=== PATIENT | male | born 1960 | race Two or more races ===

== ENCOUNTER 2018-04-09 11:58 | Emergency (ER) | payer OTHER ==
[~2018-04-09] VITALS: Ht 175.3 cm; Wt 93.0 kg
[~2018-04-09 11:58] MED LIST: AUGMENTIN 875-1 EAC1 ORAL; IBUPROFEN600 MG ORAL
[2018-04-09] MEDS ORDERED: ASPIR 8181 MG ORAL (12:13)
--- NOTE | 2018-04-09 12:18 | Emergency Room Report ---
History of Present Illness General Chief Complaint: Chest Pain Source: Patient Present Illness HPI Patient presents with complaints of pain to the left arm Initially was noted regarding numbness however the patient reports tingling sensation also feels tingling diffusely throughout the head patient reported a several days ago he had pain to the mid chest area as well This is been ongoing for the past several weeks however Patient also reports that he has seen maroon type colored stool over the past 2 years Denies any vomiting denies any diarrhea and eyes any abdominal pain at this time Denies any focal weakness denies any change in speech Allergies: Coded Allergies: No Known Allergies (Unverified , 02/07/15) Patient History Past Medical History: see triage record Pertinent Family History: none Reviewed Nursing Documentation: PMH: Agreed; PSxH: Agreed Nursing Documentation-PMH Past Medical History: No History, Except For Hx Cardiac Problems: Yes - [place] Hx Hypertension: No Hx Pacemaker: No Hx Asthma: Yes Hx COPD: No Hx Diabetes: No Hx Cancer: No Hx Gastrointestinal Problems: No Hx Dialysis: No History Of Psychiatric Problem: No Hx Neurological Problems: No Hx Cerebrovascular Accident: No Hx Seizures: No Review of Systems All Other Systems: negative except mentioned in HPI Physical Exam Vital Signs Date Time Temp Pulse Resp B/P (MAP) Pulse Ox O2 Delivery O2 Flow Rate FiO2 04/09/18 12:05 98.1 89 16 132/96 95 Room Air 98.1 Sp02 EP Interpretation: reviewed, normal General Appearance: well appearing, no apparent distress Head: normocephalic, atraumatic Eyes: bilateral eye PERRL, bilateral eye EOMI ENT: hearing grossly normal, normal pharynx, TMs + canals normal, uvula midline Neck: full range of motion, supple, no meningismus, no bony tend Respiratory: lungs clear, normal breath sounds, no rhonchi, no respiratory distress, no retraction, no accessory muscle use Cardiovascular #1: normal peripheral pulses, regular rate, rhythm, no edema, no gallop, no JVD, no murmur Gastrointestinal: normal bowel sounds, non tender, soft, no mass, no organomegaly, non-distended, no guarding, no hernia, no pulsatile mass, no rebound Genitourinary: no CVA tenderness Musculoskeletal: normal inspection Neurologic: oriented x3, responsive, supervisor bottle machines III-XII nml as tested, motor strength/ tone normal, sensory intact Psychiatric: mood/affect normal Skin: normal color, no rash, warm/dry, palpation normal Lymphatic: normal inspection, no adenopathy Medical Decision Making Diagnostic Impression: Primary Impression: Neuropathy ER Course Patient is a fairly complex patient with multiple differential to consideration including but not limited to cardiac cardiopulmonary and vascular emergencies Patient moving all extremities equally sensation is intact on examination clinically I did not feel emergency imaging of the brain was warranted Patient's blood work is appropriate EKG was also appropriate patient resting comfortably with appropriate hemodynamic stability and is otherwise stable for close follow-up Labs Test 04/09/18 12:20 04/09/18 12:52 White Blood Count 7.2 K/UL (4.8-10.8) Red Blood Count 4.97 M/UL (4.70-6.10) Hemoglobin 14.6 G/DL (14.2-18.0) Hematocrit 43.5 % (42.0-52.0) Mean Corpuscular Volume 88 FL (80-99) Mean Corpuscular Hemoglobin 29.4 PG (27.0-31.0) Mean Corpuscular Hemoglobin Concent 33.5 G/DL (32.0-36.0) Red Cell Distribution Width 12.2 % (11.6-14.8) Platelet Count 203 K/UL (150-450) Mean Platelet Volume 8.8 FL (6.5-10.1) Neutrophils (%) (Auto) 65.2 % (45.0-75.0) Lymphocytes (%) (Auto) 25.3 % (20.0-45.0) Monocytes (%) (Auto) 6.0 % (1.0-10.0) Eosinophils (%) (Auto) 2.1 % (0.0-3.0) Basophils (%) (Auto) 1.4 % (0.0-2.0) Sodium Level 140 MMOL/L (136-145) Potassium Level 3.5 MMOL/L (3.5-5.1) Chloride Level 105 MMOL/L (98-107) Carbon Dioxide Level 27 MMOL/L (21-32) Anion Gap 8 mmol/L (5-15) Blood Urea Nitrogen 11 mg/dL (7-18) Creatinine 1.0 MG/DL (0.55-1.30) Estimat Glomerular Filtration Rate > 60 mL/min (>60) Glucose Level 120 MG/DL (74-106) Calcium Level 8.7 MG/DL (8.5-10.1) Total Bilirubin 0.4 MG/DL (0.2-1.0) Aspartate Amino Transf (AST/SGOT) 17 U/L (15-37) Alanine Aminotransferase (ALT/SGPT) 33 U/L (12-78) Alkaline Phosphatase 99 U/L (46-116) Total Creatine Kinase 135 U/L (26-308) Creatine Kinase MB 0.7 NG/ML (0.0-3.6) Creatine Kinase MB Relative Index 0.5 Troponin I 0.000 ng/mL (0.000-0.056) Total Protein 7.5 G/DL (6.4-8.2) Albumin 3.5 G/DL (3.4-5.0) Globulin 4.0 g/dL Albumin/Globulin Ratio 0.9 (1.0-2.7) Urine Opiates Screen Negative (NEGATIVE) Urine Barbiturates Screen Negative (NEGATIVE) Phencyclidine (PCP) Screen Negative (NEGATIVE) Urine Amphetamines Screen Negative (NEGATIVE) Urine Benzodiazepines Screen Negative (NEGATIVE) Urine Cocaine Screen Negative (NEGATIVE) Urine Marijuana (THC) Screen Positive (NEGATIVE) Rhythm Strip Diag. Results EP Interpretation: yes Rate: 78 Rhythm: NSR, no PVC's, no ectopy Chest X-Ray Diagnostic Results Chest X-Ray Diagnostic Results : Chest X-Ray Ordered: Yes # of Views/Limited/Complete: 1 View Indication: Chest Pain EP Interpretation: Yes Interpretation: no consolidation, no effusion, no pneumothorax Impression: No acute disease Electronically Signed by: Monika Cody DO Last Vital Signs Date Time Temp Pulse Resp B/P (MAP) Pulse Ox O2 Delivery O2 Flow Rate FiO2 04/09/18 12:05 98.1 89 16 132/96 95 Room Air 98.1 Status: improved Disposition: HOME, SELF-CARE Condition: Improved Additional Instructions: Patient is provided with the discharge instructions notified to follow up with primary doctor in the next 2-3 days otherwise return to the er with any worsening symptoms. Please note that this report is being documented using [employer] technology. This can lead to erroneous entry secondary to incorrect interpretation by the dictating instrument. Monika Cody DO Apr 09, 2018 12:18
[2018-04-09 12:27] VITALS: BP 128/81
[2018-04-09 12:42] LABS: BASOPHILS % (AUTO) 1.4 % (0.0-2.0); EOSINOPHILS % (AUTO) 2.1 % (0.0-3.0); HEMATOCRIT 43.5 % (42.0-52.0); HEMOGLOBIN 14.6 G/DL (14.2-18.0); LYMPHOCYTES % (AUTO) 25.3 % (20.0-45.0); MEAN CORPUSCULAR VOLUME 88 FL (80-99); NEUTROPHILS % (AUTO) 65.2 % (45.0-75.0); PLATELET COUNT 203 K/UL (150-450); RED BLOOD COUNT 4.97 M/UL (4.70-6.10); RED CELL DISTRIBUTION WIDTH 12.2 % (11.6-14.8); WHITE BLOOD COUNT 7.2 K/UL (4.8-10.8)
[2018-04-09 12:45] LABS: ANION GAP 8 mmol/L (5-15); BLOOD UREA NITROGEN 11 mg/dL (7-18); CALCIUM 8.7 MG/DL (8.5-10.1); CARBON DIOXIDE 27 MMOL/L (21-32); CHLORIDE 105 MMOL/L (98-107); POTASSIUM 3.5 MMOL/L (3.5-5.1); SODIUM 140 MMOL/L (136-145)
[2018-04-09 12:58] LABS: ALANINE AMINOTRANSFERASE 33 U/L (12-78); ALBUMIN 3.5 G/DL (3.4-5.0); ALBUMIN/GLOBULIN RATIO 0.9 (1.0-2.7); ALKALINE PHOSPHATASE 99 U/L (46-116); ASPARTATE AMINO TRANSFERASE 17 U/L (15-37); BILIRUBIN,TOTAL 0.4 MG/DL (0.2-1.0); CKMB 0.7 NG/ML (0.0-3.6); CREATINE KINASE 135 U/L (26-308)
[2018-04-09 13:56] VITALS: BP 133/73
--- NOTE | 2018-04-09 14:02 | Diagnostic Imaging Report ---
Indication: Chest pain Technique: One view of the chest Comparison: none Findings: Lungs and pleural spaces are clear. The heart size is upper limits of normal. Impression: No acute process
== END 2018-04-09 13:56 | disposition home or self-care (01) ==
LOC: EMR 12:15
DX: G62.9 Polyneuropathy, unspecified (principal); J45.909 Unspecified asthma, uncomplicated; I25.2 Old myocardial infarction
CPT/HCPCS: 36415; 71045; 80053; 80307; 82550; 82553; 84484; 85025; 93005; 99284

== ENCOUNTER 2018-05-01 19:50 | Emergency (ER) | payer OTHER ==
[~2018-05-01] VITALS: Ht 165.1 cm; Wt 88.9 kg
[~2018-05-01 19:50] MED LIST changes: +ASPIR 8181 MG ORAL
[2018-05-01 20:03] VITALS: BP 125/82
--- NOTE | 2018-05-01 20:24 | Emergency Room Report ---
History of Present Illness General Chief Complaint: Pain Source: Patient, Medical Record Present Illness HPI Patient is a 58-year-old male who presented after increased right shoulder pain as well as the left knee pain. Patient reports having been wrestling with his son. He states he fell onto some obvious on the floor and subsequently had increased pain to his left knee as well as his right shoulder. This had gradually worsened. Patient prior episodes of the right shoulder pain type patient denies any other locations of injury. The patient states this was not assault. He denies any numbness or tingling.Patient denies any fever. Allergies: Coded Allergies: No Known Allergies (Unverified , 02/07/15) Patient History Past Medical History: see triage record Reviewed Nursing Documentation: PMH: Agreed; PSxH: Agreed Nursing Documentation-PMH Hx Cardiac Problems: Yes - [place] Hx Hypertension: No Hx Pacemaker: No Hx Asthma: Yes Hx COPD: No Hx Diabetes: No Hx Cancer: No Hx Gastrointestinal Problems: No Hx Dialysis: No Hx Neurological Problems: No Hx Cerebrovascular Accident: No Hx Seizures: No Review of Systems All Other Systems: negative except mentioned in HPI Physical Exam Vital Signs Date Time Temp Pulse Resp B/P (MAP) Pulse Ox O2 Delivery O2 Flow Rate FiO2 05/01/18 19:58 98.2 95 18 125/82 93 Room Air Sp02 EP Interpretation: reviewed, normal General Appearance: normal inspection, well appearing, no apparent distress, alert, GCS 15 Head: atraumatic ENT: normal ENT inspection, hearing grossly normal, normal voice Neck: normal inspection, full range of motion, supple, no bony tend Respiratory: normal inspection, lungs clear, normal breath sounds, no respiratory distress, no retraction, no wheezing Cardiovascular #1: regular rate, rhythm, no edema Gastrointestinal: normal inspection, normal bowel sounds, non tender, soft, no guarding, no hernia Genitourinary: no CVA tenderness Musculoskeletal: normal inspection, back normal, decreased range of motion - right shoulder, left knee laxity anterior drawer, small effusion, , tender - right anterior shoulder tenderness Neurologic: normal inspection, alert, oriented x3, responsive, database coordinator III-XII nml as tested, speech normal Psychiatric: normal inspection, judgement/insight normal, mood/affect normal Skin: normal inspection, normal color, no rash Medical Decision Making Diagnostic Impression: Primary Impression: Acute meniscal injury of left knee Additional Impression: Shoulder pain, right ER Course Patient presented for shoulder pain and knee pain.. Differential diagnosis included was not limited to rotator cuff tear, dislocation, fracture, labrum tear, biceps rupture, Fracture , tendinitis among others.Because of complexity of patient's case imaging studies were ordered.X-ray imaging of the right shoulder 3 views interpreted by me showed degenerative changes without evident fracture. X-ray imaging of the left knee 3 views indication pain showed a degenerative changes without evident fracture. The patient's exam is consistent with a anterior cruciate ligament sprain as well as a medial collateral sprain. The patient was placed in a knee immobilizer and given a sling. The patient is advised to follow up with primary care doctor in 1-2 days. Patient is advised to return if any worsening condition or if any changes in status that are concerning. This report is dictated with [employer] tool profiling machine set up operator software which may occasionally lead to discrepancies related to use of this software. Last Vital Signs Date Time Temp Pulse Resp B/P (MAP) Pulse Ox O2 Delivery O2 Flow Rate FiO2 05/01/18 20:03 98.2 88 18 125/82 93 Room Air Status: improved Disposition: HOME, SELF-CARE Condition: Stable Scripts Hydrocodone Bit/Acetaminophen 5-325* (NORCO 5-325*) 1 Each Tablet 1 TAB ORAL Q6H PRN for For Pain, #10 TAB 0 Refills Prov: Archie Espitia MD 05/01/18 Ibuprofen* (MOTRIN*) 600 Mg Tablet 600 MG ORAL Q8H PRN for For Pain, #30 TAB 0 Refills Prov: Archie Espitia MD 05/01/18 Archie Espitia MD May 01, 2018 20:24
[2018-05-01] MEDS ORDERED: Ketorolac 60mg Inj IM ONE (20:30)
[2018-05-01] MEDS ORDERED: NORCO 5-325 TA1 EACH ORAL (20:46)
[2018-05-01] MEDS ORDERED: IBUPROFEN600 MG ORAL (20:46)
[2018-05-01 21:00] VITALS: BP 118/75
--- NOTE | 2018-05-01 21:00 | Diagnostic Imaging Report ---
EXAM: XR Right Shoulder Complete, 2 or More Views CLINICAL HISTORY: PAIN TECHNIQUE: Two or more views of the right shoulder. COMPARISON: No relevant prior studies available. FINDINGS: Bones/joints: Unremarkable. No acute fracture. No dislocation. Soft tissues: Unremarkable. IMPRESSION: Normal right shoulder x-rays.
--- NOTE | 2018-05-01 21:01 | Diagnostic Imaging Report ---
EXAM: XR Left Knee, 3 views CLINICAL HISTORY: PAIN TECHNIQUE: Three views of the left knee. COMPARISON: No relevant prior studies available. FINDINGS: Bones/joints: Minimal degenerative changes. No acute fracture or traumatic malalignment. Small joint effusion. Soft tissues: Unremarkable. IMPRESSION: No acute findings.
== END 2018-05-01 21:04 | disposition home or self-care (01) ==
LOC: EMR 20:20
DX: S83.8X2A Sprain of other specified parts of left knee, initial encounter (principal); W19.XXXA Unspecified fall, initial encounter; Y93.72 Activity, wrestling; Y92.9 Unspecified place or not applicable; M25.511 Pain in right shoulder; I25.2 Old myocardial infarction
CPT/HCPCS: 96372; 99284

== ENCOUNTER 2018-07-18 12:10 | Emergency (ER) | payer OTHER ==
[~2018-07-18] VITALS: Ht 162.6 cm; Wt 90.3 kg
[~2018-07-18 12:10] MED LIST changes: +NORCO 5-325 TA1 EACH ORAL
[2018-07-18 12:30] VITALS: BP 149/92
--- NOTE | 2018-07-18 12:30 | NUR ---
ED Nurse Note: pt walked in to ED for wound check up on left hand. per pt, had puncture wound by nail 3 days ago. no discharge, local fever or redness noted. AAO x4. respirations even and non-labored noted. skin warm to touch. will wait for the further order.
[2018-07-18] MEDS ORDERED: Bacitracin Oint UD TOPIC ONE (12:45)
--- NOTE | 2018-07-18 13:00 | Emergency Room Report ---
History of Present Illness General Chief Complaint: General Complaint Source: Patient Present Illness HPI Patient has a puncture wound to his left hand. He is worried that there may have been blistering. His daughter has herpes and he is worried that she may have contacted that. There is some other bumps on his skin that concerned him. He has myalgias across his shoulders and upper arms. He denies fevers or chills. He is uncertain when his last tetanus vaccination was. The myalgias are not exertion related. No fevers, chills, chest pain, palpitations, nausea, vomiting, diarrhea, dysuria , abdominal pain, shortness of breath, depression, visual changes, headache. Allergies: Coded Allergies: No Known Allergies (Unverified , 02/07/15) Patient History Past Medical History: see triage record Social History: Denies: smoking Social History Narrative With daughter Reviewed Nursing Documentation: PMH: Agreed; PSxH: Agreed Nursing Documentation-PMH Past Medical History: No History, Except For Hx Cardiac Problems: Yes - [place] Hx Hypertension: No Hx Pacemaker: No Hx Asthma: Yes Hx COPD: No Hx Diabetes: No Hx Cancer: No Hx Gastrointestinal Problems: No Hx Dialysis: No Hx Neurological Problems: No Hx Cerebrovascular Accident: No Hx Seizures: No Review of Systems All Other Systems: negative except mentioned in HPI Physical Exam Vital Signs Date Time Temp Pulse Resp B/P (MAP) Pulse Ox O2 Delivery O2 Flow Rate FiO2 07/18/18 12:23 98.1 75 18 149/92 98 Room Air Sp02 EP Interpretation: reviewed, normal General Appearance: well appearing, no apparent distress Head: normocephalic, atraumatic Eyes: left eye other - Medial rectus weakness; bilateral eye PERRL ENT: hearing grossly normal, normal pharynx, normal voice, moist mucus membranes Neck: full range of motion, supple Respiratory: no respiratory distress, speaking full sentences Cardiovascular #2: 2+ radial (L) Gastrointestinal: normal inspection Musculoskeletal: other - Alleged tenderness across his shoulders with full range of motion Neurologic: alert, normal gait, grossly normal Psychiatric: mood/affect normal, anxious Skin: other - Puncture wound left thenar eminence. Other small excoriated lesions without blistering or erythema. They are extremely sparse and rare, one on his right abdomen Medical Decision Making Diagnostic Impression: Primary Impression: Myalgia Additional Impression: Puncture wound ER Course Patient presents with a puncture wound. Also there are other skin lesions which do not appear like herpes. He also complains of myalgias. Vital signs are stable. Tetanus is indicated. Patient reassured about exposure to herpes. Patient stable for outpatient observation and treatment. Last Vital Signs Date Time Temp Pulse Resp B/P (MAP) Pulse Ox O2 Delivery O2 Flow Rate FiO2 07/18/18 13:33 98.1 75 18 149/92 98 Room Air Status: improved Disposition: HOME, SELF-CARE Condition: Improved Scripts Bacitracin (Bacitracin) 28.4 Gm Oint...g. 1 APPLIC TOPIC BID, #20 GM Prov: Frankie Florentino MD 07/18/18 Ibuprofen* (MOTRIN*) 600 Mg Tablet 600 MG ORAL Q6H PRN for For Pain, #20 TAB Prov: Frankie Florentino MD 07/18/18 Frankie Florentino MD Jul 18, 2018 13:00
[2018-07-18] MEDS ORDERED: BACITRACIN15 GM TOPIC (13:02)
[2018-07-18] MEDS ORDERED: IBUPROFEN600 MG ORAL (13:02)
[2018-07-18] MEDS ORDERED: Tetanus/Diptheria/Pertussis Vaccine 0.5ml Syr IM ONE (13:15)
[2018-07-18 13:33] VITALS: BP 149/92
--- NOTE | 2018-07-18 13:33 | NUR ---
ED Nurse Note: Patient is being discharged from medical care with prescriptions. Awake, alert and oriented x3. ID band were removed. Patient ambulated out with all personal belongings with steady gait.
[2018-07-18] MEDS ORDERED: NKM (13:43)
== END 2018-07-18 13:33 | disposition home or self-care (01) ==
LOC: EMR 13:00
DX: S61.432A Puncture wound without foreign body of left hand, initial encounter (principal); X58.XXXA Exposure to other specified factors, initial encounter; Y92.89 Other specified places as the place of occurrence of the external cause; Z23 Encounter for immunization; I25.2 Old myocardial infarction; J45.909 Unspecified asthma, uncomplicated
CPT/HCPCS: 82962; 90471; 90715; 99282

== ENCOUNTER 2018-09-03 17:03 | Emergency (ER) | payer OTHER ==
[~2018-09-03] VITALS: Ht 162.6 cm; Wt 92.5 kg
[~2018-09-03 17:03] MED LIST changes: +BACITRACIN15 GM TOPIC; +NKM
--- NOTE | 2018-09-03 17:14 | NUR ---
ED Nurse Note: Patient walked in from home c/o left sided chest pain, patient describes it as "sharp" patient reports the pain is radiating to Left upper extremity and numbness on the left side face. patient reports that this pain has been there for 4 days. ambulatory, a/o x4, Patient denies N/V or diaphoresis.
[2018-09-03] MEDS ORDERED: ATORVASTATIN CA40 MG ORAL (17:16)
[2018-09-03] MEDS ORDERED: METOPROLOL SUCC50 MG ORAL (17:16)
--- NOTE | 2018-09-03 17:25 | Emergency Room Report ---
History of Present Illness General Chief Complaint: Chest Pain Source: Patient Present Illness HPI Patient presents emergency department today complaint left-sided chest pain radiating into the jaw and arm. Intermittent feels like needles. Occurring over last 4 days. Questionable if it's actually exertional. Denies any social leg pain does have associative shortness of breath. Denies any orthopnea nausea vomiting diarrhea or chills. Patient does not remember having any stress test this before. No other complaints are noted. Symptoms noted to be moderate to severe. Of note patient was told that he had a weak heart when he saw his oracle financial application developer he was unable to complete a stress test.No other modifying factors. No other associated signs and symptoms. No other complaints were noted. Allergies: Coded Allergies: No Known Allergies (Unverified , 02/07/15) Patient History Past Medical History: DC, CAD, asthma Past Surgical History: none Pertinent Family History: none Social History: Denies: smoking, alcohol use, drug use Reviewed Nursing Documentation: PMH: Agreed; PSxH: Agreed Nursing Documentation-PMH Past Medical History: No History, Except For Hx Cardiac Problems: Yes - [place] Hx Hypertension: No Hx Pacemaker: No Hx Asthma: Yes Hx COPD: No Hx Diabetes: No Hx Cancer: No Hx Gastrointestinal Problems: No Hx Dialysis: No Hx Neurological Problems: No Hx Cerebrovascular Accident: No Hx Seizures: No Review of Systems All Other Systems: negative except mentioned in HPI Physical Exam Vital Signs Date Time Temp Pulse Resp B/P (MAP) Pulse Ox O2 Delivery O2 Flow Rate FiO2 09/03/18 17:10 98.2 78 16 154/90 96 Room Air Sp02 EP Interpretation: reviewed, normal General Appearance: normal inspection, well appearing, no apparent distress, alert Head: atraumatic Eyes: bilateral eye normal inspection ENT: normal ENT inspection, hearing grossly normal, normal voice Neck: normal inspection, full range of motion, supple, no bony tend Respiratory: normal inspection, lungs clear, normal breath sounds, no respiratory distress, no retraction, no wheezing Cardiovascular #1: regular rate, rhythm, no edema Gastrointestinal: normal inspection, normal bowel sounds, non tender, soft, no guarding, no hernia Genitourinary: no CVA tenderness Musculoskeletal: normal inspection, back normal, normal range of motion Neurologic: normal inspection, alert, responsive, speech normal Psychiatric: normal inspection, judgement/insight normal, mood/affect normal Skin: normal inspection, normal color, no rash Medical Decision Making Diagnostic Impression: Primary Impression: ACS (acute coronary syndrome) ER Course Patient presented to the emergency department today complaining of chest pain. Differential diagnoses include acute coronary syndrome, pulmonary embolism, pneumothorax, chest wall pain, pleurisy, pericarditis, acute anxiety reaction just to name a few. Given the severity of the patient's presentation I felt this is a highly complex patient. This patient required extensive workup. CBC , chemistry, EKG, chest x-ray, cardiac enzymes, liver profile were all obtained. 12-lead EKG performed for nontraumatic chest pain. RS documentation: EKG was performed. Please refer to below for interpretation. Patient had CBC and chemistry obtained. Both of which were normal. Patient's cardiac enzymes also normal. Patient had normal chest x-ray. Patient's EKG and rhythm strip are also normal. Given patient's presentation risk factors however I felt the patient require admission. Case was discussed with Dr. Newton Serrano. Patient will be transferred telemetry to [facility] once a bed is available. Labs Test 09/03/18 17:33 White Blood Count 7.8 K/UL (4.8-10.8) Red Blood Count 4.99 M/UL (4.70-6.10) Hemoglobin 14.8 G/DL (14.2-18.0) Hematocrit 45.3 % (42.0-52.0) Mean Corpuscular Volume 91 FL (80-99) Mean Corpuscular Hemoglobin 29.6 PG (27.0-31.0) Mean Corpuscular Hemoglobin Concent 32.6 G/DL (32.0-36.0) Red Cell Distribution Width 12.7 % (11.6-14.8) Platelet Count 217 K/UL (150-450) Mean Platelet Volume 7.7 FL (6.5-10.1) Neutrophils (%) (Auto) 60.2 % (45.0-75.0) Lymphocytes (%) (Auto) 30.1 % (20.0-45.0) Monocytes (%) (Auto) 6.2 % (1.0-10.0) Eosinophils (%) (Auto) 1.5 % (0.0-3.0) Basophils (%) (Auto) 2.0 % (0.0-2.0) Sodium Level 139 MMOL/L (136-145) Potassium Level 3.1 MMOL/L (3.5-5.1) Chloride Level 104 MMOL/L (98-107) Carbon Dioxide Level 27 MMOL/L (21-32) Anion Gap 8 mmol/L (5-15) Blood Urea Nitrogen 11 mg/dL (7-18) Creatinine 1.1 MG/DL (0.55-1.30) Estimat Glomerular Filtration Rate > 60 mL/min (>60) Glucose Level 84 MG/DL (74-106) Calcium Level 9.2 MG/DL (8.5-10.1) Total Bilirubin 0.6 MG/DL (0.2-1.0) Aspartate Amino Transf (AST/SGOT) 24 U/L (15-37) Alanine Aminotransferase (ALT/SGPT) 51 U/L (12-78) Alkaline Phosphatase 113 U/L (46-116) Total Creatine Kinase 221 U/L (26-308) Creatine Kinase MB 2.0 NG/ML (0.0-3.6) Creatine Kinase MB Relative Index 0.9 Troponin I 0.000 ng/mL (0.000-0.056) Pro-B-Type Natriuretic Peptide 10 pg/mL (0-125) Total Protein 8.3 G/DL (6.4-8.2) Albumin 4.1 G/DL (3.4-5.0) Globulin 4.2 g/dL Albumin/Globulin Ratio 1.0 (1.0-2.7) EKG Diagnostic Results Rate: normal Rhythm: NSR ST Segments: no acute changes Other Impression left axis deviation Rhythm Strip Diag. Results EP Interpretation: yes Rate: 80s Rhythm: NSR, no PVC's, no ectopy Chest X-Ray Diagnostic Results Chest X-Ray Diagnostic Results : Chest X-Ray Ordered: Yes # of Views/Limited/Complete: 1 View Indication: Chest Pain EP Interpretation: Yes Interpretation: no consolidation, no effusion, no pneumothorax, no acute cardiopulmonary disease Impression: No acute disease Electronically Signed by: Electronically signed by Alfonzo Agrawal MD Last Vital Signs Date Time Temp Pulse Resp B/P (MAP) Pulse Ox O2 Delivery O2 Flow Rate FiO2 09/03/18 17:10 98.2 78 16 154/90 96 Room Air Status: improved Disposition: XFER SHT-TRM HOSP Condition: Serious Alfonzo Agrawal MD Sep 03, 2018 17:25
[2018-09-03] MEDS ORDERED: Aspirin Baby 81mg ORAL ONE (17:30)
[2018-09-03 17:47] VITALS: BP 141/90
[2018-09-03 17:52] LABS: EOSINOPHILS % (AUTO) 1.5 % (0.0-3.0); HEMATOCRIT 45.3 % (42.0-52.0); HEMOGLOBIN 14.8 G/DL (14.2-18.0); LYMPHOCYTES % (AUTO) 30.1 % (20.0-45.0); MEAN CORPUSCULAR VOLUME 91 FL (80-99); MONOCYTES % (AUTO) 6.2 % (1.0-10.0); NEUTROPHILS % (AUTO) 60.2 % (45.0-75.0); PLATELET COUNT 217 K/UL (150-450); RED BLOOD COUNT 4.99 M/UL (4.70-6.10); RED CELL DISTRIBUTION WIDTH 12.7 % (11.6-14.8); WHITE BLOOD COUNT 7.8 K/UL (4.8-10.8)
[2018-09-03 18:05] LABS: ANION GAP 8 mmol/L (5-15); BLOOD UREA NITROGEN 11 mg/dL (7-18); CALCIUM 9.2 MG/DL (8.5-10.1); CARBON DIOXIDE 27 MMOL/L (21-32); CHLORIDE 104 MMOL/L (98-107); CREATININE 1.1 MG/DL (0.55-1.30); POTASSIUM 3.1 MMOL/L (3.5-5.1); SODIUM 139 MMOL/L (136-145)
--- NOTE | 2018-09-03 18:18 | Diagnostic Imaging Report ---
EXAM: XR Chest, 1 View CLINICAL HISTORY: COUGH TECHNIQUE: Frontal view of the chest. COMPARISON: No relevant prior studies available. FINDINGS: Lungs: Reduced lung volume. No consolidation. Pleural space: Unremarkable. No pneumothorax. Heart: Unremarkable. No cardiomegaly. Mediastinum: Unremarkable. Bones/joints: No acute fracture. IMPRESSION: Reduced lung volume. No consolidation.
[2018-09-03 18:19] LABS: ALANINE AMINOTRANSFERASE 51 U/L (12-78); ALBUMIN 4.1 G/DL (3.4-5.0); ALKALINE PHOSPHATASE 113 U/L (46-116); ASPARTATE AMINO TRANSFERASE 24 U/L (15-37); BILIRUBIN,TOTAL 0.6 MG/DL (0.2-1.0); CREATINE KINASE 221 U/L (26-308)
--- NOTE | 2018-09-03 19:17 | NUR ---
HAND-OFF: Report given to Meenu Coburn RN . Patient stable in bed
[2018-09-03 20:03] VITALS: BP 138/82
--- NOTE | 2018-09-03 21:10 | NUR ---
Rebecca meng in ED - 09/03/18 at 2112 by LUCA Nelia les from [facility]- stating accepted patient to go to [facility].
[2018-09-03 21:26] VITALS: BP 131/71
[2018-09-03 21:28] VITALS: BP 138/82
--- NOTE | 2018-09-03 21:30 | NUR ---
ED Nurse Note: PT Transfered to [facility]. Hand off report given to Maura RN and EMS personel. pt vital signs, status, Labs and condition has been reported. pt is stable for transfer as per ERMD. pt has left with all belongings.
== END 2018-09-03 21:33 | disposition short-term general hospital (02) ==
LOC: EMR 17:48
DX: I24.9 Acute ischemic heart disease, unspecified (principal); J45.909 Unspecified asthma, uncomplicated; I25.2 Old myocardial infarction
CPT/HCPCS: 36415; 71045; 80053; 82550; 82553; 83880; 84484; 85025; 93005; 99285